=== PATIENT | female | born 1975 | race Caucasian/White ===

== ENCOUNTER 2020-10-28 15:46 | Emergency (ER) | payer OTHER | END 2020-10-28 18:12 | disposition home or self-care (01) | LOC: FER 15:46 | DX: F41.1 Generalized anxiety disorder (principal); L27.1 Localized skin eruption due to drugs and medicaments taken internally; T50.905A Adverse effect of unspecified drugs, medicaments and biological substances, initial encounter; J30.2 Other seasonal allergic rhinitis; Z88.2 Allergy status to sulfonamides; Z88.5 Allergy status to narcotic agent; Z98.890 Other specified postprocedural states; Y92.9 Unspecified place or not applicable ==

== ENCOUNTER 2020-11-29 19:39 | Emergency (ER) | payer OTHER | END 2020-11-30 01:45 | disposition home or self-care (01) | LOC: FER 19:39 | DX: S81.811A Laceration without foreign body, right lower leg, initial encounter (principal); W45.8XXA Other foreign body or object entering through skin, initial encounter; Y92.009 Unspecified place in unspecified non-institutional (private) residence as the place of occurrence of the external cause; Z23 Encounter for immunization | CPT/HCPCS: 90471; 90715 ==